=== PATIENT | male | born 1945 | race African-American/Black ===

== ENCOUNTER 2019-02-07 09:22 | Day surgery (SDC) | payer OTHER ==
[2019-02-06 11:37] VITALS: BMI 23.6
[2019-02-07] MEDS ORDERED: PROPOFOL 20 ML ONE (12:38)
[2019-02-07] MEDS ORDERED: MIDAZOLAM HCL 2 MG/2 ML SINGLE DOSE VIAL ONE (12:38)
[2019-02-07] MEDS ORDERED: ceFAZolin SODIUM 1 GM VIAL IVPB ONE (12:45)
[2019-02-07] MEDS ORDERED: oxyCODONE HCL 5 MG TABLET PO PRN (12:46)
[2019-02-07] MEDS ORDERED: ONDANSETRON 4 MG/2 ML VIAL IVPUSH PRN (12:46)
[2019-02-07] MEDS ORDERED: ceFAZolin SODIUM 1 GM VIAL ONE (12:48)
[2019-02-07] MEDS ORDERED: LACTATED RINGERS SOLUTION 1,000 ML IV SCH (13:00)
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
--- NOTE | 2019-02-07 13:26 | OP ---
Operative Note - Note: Operative Date: 02/07/19 Pre-Operative Diagnosis: bph with luts, urethral stricture, bladder stones Operation: cysto, iou and bladder laserlithotripsy Findings: mult. bladder stones, obstructing prostate, urethral stricture Post-Operative Diagnosis: Same as Pre-op Instrument Assembly Supervisor: Kenney Regan Anesthesia: General Specimens Removed: urine, bladder stones Estimated Blood Loss (mls): 0 Drains & Tubes with Location: 22f 10cc aleman Drains, Volume Out (mls): 0 Blood Volume Replaced (mls): 0 Fluid Volume Replaced (mls): 0 Operative Report Dictated: Yes
[2019-02-07 16:05] VITALS: BP 136/88; PULSE 60; TEMP 97.9
--- NOTE | 2019-02-07 16:25 | OP ---
DATE OF OPERATION: 02/07/2019 PREOPERATIVE DIAGNOSES: Benign prostatic hypertrophy, lower urinary tract symptoms, history of urethral stricture disease, history of recurrent hematuria. POSTOPERATIVE DIAGNOSES: Urethral stricture, bladder stones, and obstructing prostate. ANESTHESIA: General. DESCRIPTION OF PROCEDURE: Under above-stated anesthesia, patient was prepped and draped in the usual sterile manner. He was placed in the dorsal lithotomy position. Cystoscopy revealed a normal meatus. A long anterior urethral stricture was found. Using an optical urethrotome, the stricture was excised at the 12 o'clock position. No extravasation or bleeding was noted. The prostatic urethra revealed tri-lobar hypertrophy of the prostate. There was lateral lobe kissing. The bladder revealed a grade 2 trabeculation. Multiple stones were found in the bladder. No other lesions were seen. Using a 1000-holmium fiber at an energy of 2 and a rate of 20, the stones were lased and evacuated with an EchoSign evacuator. No active bleeding was noted. Therefore, the bladder was emptied. The scope was removed. The 20-Wolof Zaman was then kept in the bladder; this was attached to a leg bag. The patient tolerated the procedure well. He returned to the recovery room in good condition. Christine [id number]
--- NOTE | 2019-02-08 16:14 | PATH ---
Cytology Non-Gynecological Report Patient Name: ERLINDA MAR [facility] [place]. Rec. #: [id number] /Age/Gender: 1945 (Age: 73) / M Account: [id number] Location: [facility] SURGICAL Taken: 02/07/2019 Received: 02/07/2019 Reported: 02/08/2019 Physicians: Kenney Regan M.D. Specimen(s) Received URINE Clinical History Urine Final Diagnosis URINE FOR CYTOLOGY: SATISFACTORY FOR EVALUATION. SUSPECT URINARY TRACT INFECTION. NEGATIVE FOR HIGH GRADE UROTHELIAL CARCINOMA. UROTHELIAL CELLS AND SQUAMOUS EPITHELIAL CELLS PRESENT. MANY RED BLOOD CELLS AND NUMEROUS NEUTROPHILS PRESENT. BACTERIA PRESENT. Electronically Signed Tricia Medel M.D. Gross Description Approximately 60 cc of yellow fluid received fresh. One cytofunnel prepared and Pap stained.
--- NOTE | 2019-02-09 15:40 | PATH ---
Surgical Pathology Report Patient Name: ERLINDA MAR [facility]. Rec. #: [id number] /Age/Gender: 1945 (Age: 73) / M Account: [id number] Location: [facility] SURGICAL Taken: 02/07/2019 Received: 02/07/2019 Reported: 02/09/2019 Physicians: Kenney Regan M.D. Specimen(s) Received CALCULI Clinical History Urethral stricture/stones Final Diagnosis "BLADDER STONE", BIOPSY: MARKEDLY INFLAMED AND NECROTIC SOFT TISSUE WITH EMBEDDED DYSTROPHIC CALCIFICATIONS AND POLARIZABLE CRYSTALLINE MATERIAL. Electronically Signed Tricia Medel M.D. Gross Description Received fresh labeled "bladder stone," is a 0.7 x 0.5 x 0.2 cm aggregate of perez-burden, soft necrotic material. No definitive calculus is identified. The specimen is entirely submitted in one cassette. /02/08/2019 saudi02/08/2019
== END 2019-02-07 16:07 | disposition home or self-care (01) ==
LOC: JASU-SURG 09:22
PROVIDERS: ATTEND Urology
PROC: 0TND8ZZ Release Urethra, Via Natural or Artificial Opening Endoscopic (ICD-10-PCS; 2019-02-07)
PROC: 0TCB8ZZ Extirpation of Matter from Bladder, Via Natural or Artificial Opening Endoscopic (ICD-10-PCS; principal; 2019-02-07 11:00)
DX: N40.1 Benign prostatic hyperplasia with lower urinary tract symptoms (principal); N35.914 Unspecified anterior urethral stricture, male; N21.0 Calculus in bladder; N02.9 Recurrent and persistent hematuria with unspecified morphologic changes; N32.89 Other specified disorders of bladder; Z21 Asymptomatic human immunodeficiency virus [HIV] infection status
CPT/HCPCS: 87077; 87086; 88305-TC; 94760